=== PATIENT | male | born 1955 | race Caucasian/White ===

== ENCOUNTER → 2017-05-18 | Outpatient (CLI) | payer OTHER ==
[~2017-05-18] MED LIST: COLA100C5 PO; No medications; PERC5TAB12 PO; TYLE325T5 PO
== END ==
LOC: M SMT 11:10
PROVIDERS: ATTEND Urology
DX: Z85.46 Personal history of malignant neoplasm of prostate (principal)

== ENCOUNTER → 2017-11-14 | Outpatient (CLI) | payer OTHER ==
[2017-11-14 18:39] LABS: PROSTATIC SPECIFIC AG MONITOR < 0.01 NG/ML (< 4.0)
== END ==
LOC: M SMT 11:20
DX: C61 Malignant neoplasm of prostate (principal)
CPT/HCPCS: 84153

== ENCOUNTER → 2018-06-04 | Outpatient (CLI) | payer OTHER ==
[2018-06-04 14:15] LABS: PROSTATIC SPECIFIC AG MONITOR < 0.0 NG/ML (< 4.0)
== END ==
LOC: M SMT 09:02
DX: C61 Malignant neoplasm of prostate (principal)
CPT/HCPCS: 84153

== ENCOUNTER → 2018-11-21 | Outpatient (CLI) | payer OTHER | LOC: M SMT 08:47 | PROVIDERS: ATTEND Urology | DX: C61 Malignant neoplasm of prostate (principal) ==

== ENCOUNTER 2019-04-15 06:53 | Day surgery (SDC) | payer OTHER ==
[~2019-04-15] VITALS: Ht 170.2 cm; Wt 72.1 kg
[~2019-04-15 06:53] MED LIST changes: +ATOR1TAB19 PO; +TRAV04OPD OU
[2019-04-15] MEDS ORDERED: NS 1,000 ML IV ONE (07:00)
[2019-04-15] MEDS ORDERED: LIDOCAINE 2% INJ 100 MG/5 ML SDV (FOR ANES.) As Ordered ONE (07:06)
[2019-04-15] MEDS ORDERED: PROPOFOL 200 MG/20 ML VIAL As Ordered ONE ×2 (07:06→07:56)
--- NOTE | 2019-04-15 08:15 | ROOR ---
Patient Name: Bret Liu Procedure Date: 04/15/2019 7:48 AM Date of : 1955 Age: 63 Room: [facility] Gender: Male Note Status: Finalized Procedure: Total Colonoscopy to Cecum + ileoscopy + Cold Snare Polypectomy Indications: Screening for colorectal malignant neoplasm Providers: Delmar Huynh MD Referring MD: ARMANDO MANDEL JR, MD Requesting Provider: Medicines: Monitored Anesthesia Care Complications: No immediate complications. Procedure: Pre-Anesthesia Assessment: - The heart rate, respiratory rate, oxygen saturations, blood pressure, adequacy of pulmonary ventilation, and response to care were monitored throughout the procedure. The Colonoscope was introduced through the anus and advanced to the cecum, identified by appendiceal orifice and ileocecal valve. The colonoscopy was performed without difficulty. The patient tolerated the procedure well. The quality of the bowel preparation was excellent. Findings: The perianal and digital rectal examinations were normal. Non-bleeding internal hemorrhoids were found during retroflexion. The hemorrhoids were small and Grade I (internal hemorrhoids that do not prolapse). Multiple small and large-mouthed diverticula were found in the recto-sigmoid colon, sigmoid colon and descending colon. Two sessile polyps were found at 25 cm proximal to the anus. The polyps were small in size. These polyps were removed with a cold snare. Resection and retrieval were complete. A small polyp was found at 60 cm proximal to the anus. The polyp was sessile. The polyp was removed with a cold snare. Resection and retrieval were complete. The exam was otherwise without abnormality on direct and retroflexion views. The terminal ileum appeared normal. Impression: - Non-bleeding internal hemorrhoids. - Diverticulosis in the recto-sigmoid colon, in the sigmoid colon and in the descending colon. - Two small polyps at 25 cm proximal to the anus, removed with a cold snare. Resected and retrieved. - One small polyp at 60 cm proximal to the anus, removed with a cold snare. Resected and retrieved. - The examination was otherwise normal on direct and retroflexion views. - The examined portion of the ileum was normal. - The exam was otherwise normal to the cecum. Recommendation: - Patient has a contact number available for emergencies. The signs and symptoms of potential delayed complications were discussed with the patient. Return to normal activities tomorrow. Written discharge instructions were provided to the patient. - High fiber diet. - Discharge patient to home. - Continue present medications. - Await pathology results. - Repeat colonoscopy in 5 years for surveillance. - Return to referring physician. - Telephone GI clinic for pathology results in 1 week. - The findings and recommendations were discussed with the patient's family. Delmar Huynh MD Delmar Huynh MD 04/15/2019 8:14:41 AM Electronically signed by Delmar Huynh MD Number of Addenda: 0 Note Initiated On: 04/15/2019 7:48 AM Estimated Blood Loss: Estimated blood loss: none.
[2019-04-15 08:30] VITALS: BP 170/103
== END 2019-04-15 08:37 | disposition home or self-care (01) ==
LOC: M OPP 06:53
PROVIDERS: ATTEND Internal Medicine Gastroenterology
DX: Z12.11 Encounter for screening for malignant neoplasm of colon (principal); K64.0 First degree hemorrhoids; K63.5 Polyp of colon; K57.30 Diverticulosis of large intestine without perforation or abscess without bleeding; Z79.899 Other long term (current) drug therapy; Z87.891 Personal history of nicotine dependence

== ENCOUNTER → 2019-05-15 | Outpatient (CLI) | payer OTHER | LOC: M SMT 13:37 | PROVIDERS: ATTEND Nurse Practitioner Family | DX: C61 Malignant neoplasm of prostate (principal) ==

== ENCOUNTER → 2020-09-04 | Outpatient (CLI) | payer MEDICARE, OTHER ==
--- NOTE | 2020-09-04 18:16 | REP ---
INDICATION: PAIN IN UNSPECIFIED JOINT COMPARISON: None. TECHNIQUE: Internal rotation, external rotation, and Y view right and left shoulder. FINDINGS: Right shoulder demonstrates old healed clavicle fracture. Generalized age-related changes at the acromioclavicular and glenohumeral joints are appreciated without overt arthritic findings. No periarticular calcifications or loose bodies. The subacromial space is normal. No acute fracture or dislocation. Left shoulder demonstrates generalized age-related changes without overt arthritic findings. The subacromial space is normal. No periarticular calcifications or loose bodies identified. No acute fracture or dislocation. IMPRESSION: Relatively generalized age-related changes. <Electronically signed by Onel Ridley > 09/04/20 [id number]
[2020-09-04 18:26] LABS: ALT/SGPT 36 U/L (12-78); BILIRUBIN,DIRECT 0.1 MG/DL (0.0-0.2); BILIRUBIN,TOTAL 0.3 MG/DL (0.2-1.0); BLOOD UREA NITROGEN 17 MG/DL (7-18); C REACTIVE PROTEIN QUANTITATIV 0.38 MG/DL (0.00-0.30); CALCIUM LEVEL 9.3 MG/DL (8.8-10.2); CARBON DIOXIDE LEVEL 30 MEQ/L (21-32); CHLORIDE LEVEL 106 MEQ/L (98-107); CHOLESTEROL LEVEL 159 MG/DL (< 200); CPK CREATINE PHOSPHOKINASE 59 U/L (39-308); GLOMERULAR FILTRATION RATE > 60.0 (>49); GLUCOSE, FASTING 96 MG/DL (70-100); LDH LACTATE DEHYDROGENASE 161 U/L (87-241); PHOSPHORUS LEVEL 4.5 MG/DL (2.5-4.9); POTASSIUM SERUM 4.5 MEQ/L (3.5-5.1); RHEUMATOID FACTOR QUANT < 10.0 IU/ML (<15.0); SODIUM LEVEL 141 MEQ/L (136-145); TOTAL PROTEIN 6.8 GM/DL (6.4-8.2); TRIGLYCERIDES LEVEL 79 MG/DL (<150)
[2020-09-04 18:35] LABS: TOTAL 25(OH) VITAMIN D 56.5 NG/ML (30.0-100.0)
== END ==
LOC: M LAB 17:19
PROVIDERS: ATTEND Internal Medicine
DX: M25.519 Pain in unspecified shoulder (principal); Z79.899 Other long term (current) drug therapy
CPT/HCPCS: 36415; 73030; 80053; 82306; 82465; 82550; 83615; 84100; 84478; 85652; 86140; 86431; G0463

== ENCOUNTER → 2020-09-24 | Outpatient (CLI) | payer MEDICARE, OTHER | LOC: M LAB 09:20 | PROVIDERS: ATTEND Internal Medicine | DX: M35.3 Polymyalgia rheumatica (principal) ==

== ENCOUNTER → 2020-10-07 | Outpatient (CLI) | payer MEDICARE, OTHER | LOC: M LAB 08:42 | PROVIDERS: ATTEND Internal Medicine | DX: M35.3 Polymyalgia rheumatica (principal) ==

== ENCOUNTER → 2020-10-12 | Outpatient (CLI) | payer MEDICARE, OTHER ==
--- NOTE | 2020-10-12 16:43 | DEXAMM ---
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 COMPARISON: None. TECHNIQUE: Bone density was measured using dual-energy x-ray absorptiometry (DEXA). FINDINGS: AP SPINE L1-L4 BMD 0.985 g/cm2 Young Adult T-Score -1.7 Age Matched Z-Score -1.6. LT FEMUR, TOTAL BMD is 0.927 g/cm2 Young Adult T-Score -0.6 Age Matched Z-Score is -0.7. LT NECK BMD 0.944 g/cm2 Young Adult T-Score -0.7 Age Matched Z-Score 0.1. RT FEMUR, TOTAL BMD 0.947 g/cm2 Young Adult T-Score -0.5 Age Matched Z-Score 5-0.5. RT NECK BMD 0.926 g/cm2 Young Adult T-Score -0.8 Age Matched Z-Score 0.0. IMPRESSION: There is low bone density of the spine. There is normal bone density of the left hip. There is normal bone density of the right hip. FOLLOW-UP: Recommendation for the next bone density exam: 2 years. <Electronically signed by Bret Centeno > 10/12/20 [id number]
== END ==
LOC: M WHC 14:00
PROVIDERS: ATTEND Internal Medicine
DX: Z79.52 Long term (current) use of systemic steroids (principal)

== ENCOUNTER → 2020-10-21 | Outpatient (CLI) | payer MEDICARE, OTHER | LOC: M LAB 12:40 | PROVIDERS: ATTEND Internal Medicine | DX: M35.3 Polymyalgia rheumatica (principal) ==

== ENCOUNTER → 2020-11-09 | Outpatient (CLI) | payer MEDICARE, OTHER | LOC: M LAB 11:14 | PROVIDERS: ATTEND Internal Medicine | DX: M35.3 Polymyalgia rheumatica (principal) ==

== ENCOUNTER → 2020-11-19 | Outpatient (CLI) | payer MEDICARE, OTHER | LOC: M LAB 07:49 | PROVIDERS: ATTEND Internal Medicine | DX: M35.3 Polymyalgia rheumatica (principal) ==

== ENCOUNTER → 2020-12-03 | Outpatient (CLI) | payer MEDICARE, OTHER | LOC: M LAB 12:41 | PROVIDERS: ATTEND Internal Medicine | DX: M35.3 Polymyalgia rheumatica (principal) ==

== ENCOUNTER → 2020-12-24 | Outpatient (CLI) | payer MEDICARE, OTHER | LOC: M LAB 10:43 | PROVIDERS: ATTEND Internal Medicine | DX: M35.3 Polymyalgia rheumatica (principal) ==

== ENCOUNTER → 2021-01-14 | Outpatient (CLI) | payer MEDICARE, OTHER | LOC: M LAB 09:18 | PROVIDERS: ATTEND Internal Medicine | DX: M35.3 Polymyalgia rheumatica (principal) ==

== ENCOUNTER → 2021-01-28 | Outpatient (CLI) | payer MEDICARE, OTHER | LOC: M LAB 09:09 | PROVIDERS: ATTEND Internal Medicine | DX: M35.3 Polymyalgia rheumatica (principal) ==

== ENCOUNTER → 2021-02-11 | Outpatient (CLI) | payer MEDICARE, OTHER | LOC: M LAB 08:18 | PROVIDERS: ATTEND Internal Medicine | DX: M35.3 Polymyalgia rheumatica (principal) ==

== ENCOUNTER → 2021-02-25 | Outpatient (CLI) | payer MEDICARE, OTHER | LOC: M LAB 08:21 | PROVIDERS: ATTEND Internal Medicine | DX: M35.3 Polymyalgia rheumatica (principal) ==

== ENCOUNTER → 2021-03-02 | Outpatient (CLI) | payer MEDICARE, OTHER ==
--- NOTE | 2021-03-02 15:49 | REP ---
INDICATION: NEOPLASM OF UNCERTAIN BEHAVIOR OF LEFT BREAST. COMPARISON: No comparison breast imaging. TECHNIQUE: A skin marker is affixed to the skin at the site of the palpable lump in the left breast. Craniocaudal and mediolateral oblique views were obtained. A left breast mediolateral view was obtained. Routine views of the right breast were obtained. 3D tomography was utilized. Targeted left breast sonography was performed. FINDINGS: Breast tissue is predominantly fat. There are normal appearing lymph nodes in each axilla. At the site of the skin marker, there is an oval-shaped 4.8 cm encapsulated fatty lesion consistent with benign lipoma. This corresponds to the site of the palpable lump. No soft tissue component is seen. No spiculation or microcalcification is observed. No worrisome skin changes seen. Sonographic findings: Targeted left breast sonography is performed the 12 o'clock position at the site of the palpable lump. A homogeneous isoechoic subcutaneous mass lesion is observed measuring 5.5 x 1.9 x 4.5 cm consistent with the lipoma seen on mammography. IMPRESSION: BIRADS/ACR category 2 benign breast imaging. Benign lipoma noted at the site of the palpable lump in the left breast. . This mammogram was interpreted with the aid of an FDA-approved computer-aided detection system. The patient states he had a clinical breast exam in over a year ago. The patient letter being requested is M2 male letter. RECOMMENDATION: Clinical follow-up is advised. <Electronically signed by Al De Souza > 03/02/21 [id number]
== END ==
LOC: M WHC 13:39
PROVIDERS: ATTEND Internal Medicine
DX: D48.62 Neoplasm of uncertain behavior of left breast (principal)
CPT/HCPCS: 76642; 77066; G0279

== ENCOUNTER → 2021-03-25 | Outpatient (CLI) | payer MEDICARE, OTHER | LOC: M LAB 11:29 | PROVIDERS: ATTEND Internal Medicine | DX: M35.3 Polymyalgia rheumatica (principal) ==

== ENCOUNTER → 2021-04-05 | Outpatient (CLI) | payer MEDICARE, OTHER ==
--- NOTE | 2021-04-05 11:06 | REP ---
INDICATION: NICOTINE DEPEND. COMPARISON: None. TECHNIQUE: Axial noncontrast images from the thoracic inlet to the upper abdomen using low-dose lung screening technique (LDCT). As per the protocol only lung window images were sent to the read station for interpretation FINDINGS: There are 2 nodules in the right lung one borders the inferior most aspect of the anterior segment of the right upper lobe in the right middle lobe measuring 5 mm and is somewhat triangular in shape and the other is in the right upper lobe anterior segment measuring 5 mm as well. No other abnormal nodules, masses, or opacities are identified. Grossly, the imaged upper abdomen shows a low-density but solid-appearing area which may be herniating through a rent in the medial left hemidiaphragm. There is no gross evidence of mediastinal or hilar adenopathy. The imaged osseous structures are grossly intact. IMPRESSION: 1. Lung nodules as described above. According to the revised Fleischner society criteria these nodules represent category 2 lesions for which a [address] examination the chest is recommended. 2. Probable left-sided Bochdalek's hernia, however, it is poorly imaged on this low-dose screening CT examination of the lungs. Contrast-enhanced CT examination of the abdomen is recommended for further evaluation. <Electronically signed by Zi Leslie > 04/05/21 [id number]
== END ==
LOC: M RAD 10:17
PROVIDERS: ATTEND Internal Medicine
DX: F17.210 Nicotine dependence, cigarettes, uncomplicated (principal)

== ENCOUNTER → 2021-04-29 | Outpatient (CLI) | payer MEDICARE, OTHER | LOC: M LAB 09:21 | PROVIDERS: ATTEND Internal Medicine | DX: M35.3 Polymyalgia rheumatica (principal) ==

== ENCOUNTER → 2021-05-10 | Outpatient (CLI) | payer MEDICARE, OTHER ==
[~2021-05-10] MED LIST changes: +GASTROGRAFIN SOLUTION 30ML (Q9963) ONE; +ISOVUE-370 76% 100ML VIAL ONE
--- NOTE | 2021-05-10 15:49 | REP ---
INDICATION: LT SIDED HERNIA SEEN ON CTLD SCAN. COMPARISON: None TECHNIQUE: Standard helical technique after the intravenous administration of 100 cc Isovue 370. Oral bowel preparatory contrast was administered prior to the exam. FINDINGS: The lung bases are unchanged from the prior low-dose screening CT examination of the lungs obtained 04/05/2021. Note is made of a small fat containing left-sided Bochdalek's hernia. The gallbladder, spleen, pancreas, adrenal glands, and kidneys are within normal limits. In the posterior segment of the right lobe of the liver there is a 1.6 cm sized area of enhancement seen only on the arterial phase imaging. In the anterior segment the right lobe of the liver there is an area of peripheral nodular type enhancement which measures 1.6 cm but this is barely perceptible on 2 minute delay imaging. The liver is otherwise unremarkable. The abdominal aorta and para-aortic regions are within normal limits. The bowel loops and the mesenteries are within normal limits. There is no mass or adenopathy. There is no free fluid or free air. The osseous structures are within normal limits for the patient's age. There are spinal degenerative changes. IMPRESSION: 1. Two enhancing liver lesions as described above. These are not typical M angiomas but likely represent small vascular anomalies. Consider pre and post gadolinium enhanced hepatic MRI for complete evaluation. 2. Small likely incidental adipose only left-sided Bochdalek's hernia. 3. Other findings as described above. <Electronically signed by Zi Leslie > 05/10/21 [id number]
== END ==
LOC: M PLAIMG 14:04
PROVIDERS: ATTEND Internal Medicine
DX: K76.89 Other specified diseases of liver (principal); Q79.0 Congenital diaphragmatic hernia
CPT/HCPCS: 74160; Q9963; Q9967

== ENCOUNTER → 2021-06-01 | Outpatient (CLI) | payer MEDICARE, OTHER ==
[~2021-06-01] MED LIST changes: -GASTROGRAFIN SOLUTION 30ML (Q9963) ONE; -ISOVUE-370 76% 100ML VIAL ONE
== END ==
LOC: M LAB 08:42
PROVIDERS: ATTEND Urology
DX: C61 Malignant neoplasm of prostate (principal)
CPT/HCPCS: 36415; 84153; G0463

== ENCOUNTER → 2021-06-03 | Outpatient (CLI) | payer MEDICARE, OTHER | LOC: M LAB 10:52 | PROVIDERS: ATTEND Internal Medicine | DX: M35.3 Polymyalgia rheumatica (principal) ==

== ENCOUNTER → 2021-07-01 | Outpatient (CLI) | payer MEDICARE, OTHER | LOC: M LAB 08:42 | PROVIDERS: ATTEND Internal Medicine | DX: M35.3 Polymyalgia rheumatica (principal) ==

== ENCOUNTER → 2021-09-02 | Outpatient (CLI) | payer MEDICARE, OTHER | LOC: M LAB 10:40 | PROVIDERS: ATTEND Internal Medicine | DX: M53.3 Sacrococcygeal disorders, not elsewhere classified (principal) ==

== ENCOUNTER → 2021-09-13 | Outpatient (REF) | payer MEDICARE, OTHER ==
[2021-09-13 17:10] LABS: C REACTIVE PROTEIN QUANTITATIV < 0.30 MG/DL (0.00-0.30)
[2021-09-13 17:22] LABS: TOTAL 25(OH) VITAMIN D 77.7 NG/ML (30.0-100.0)
== END ==
LOC: M SFHCRHEU 12:32
PROVIDERS: ATTEND Internal Medicine
DX: M35.3 Polymyalgia rheumatica (principal); M85.80 Other specified disorders of bone density and structure, unspecified site

== ENCOUNTER → 2022-06-07 | Outpatient (CLI) | payer MEDICARE, OTHER | LOC: M WUC 08:58 | PROVIDERS: ATTEND Urology | DX: C61 Malignant neoplasm of prostate (principal) ==

== ENCOUNTER → 2022-12-07 | Outpatient (CLI) | payer MEDICARE, OTHER | LOC: M WUC 10:48 | PROVIDERS: ATTEND Urology | DX: C61 Malignant neoplasm of prostate (principal) ==

== ENCOUNTER → 2023-02-23 | Outpatient (CLI) | payer MEDICARE, OTHER | LOC: M RAD 09:40 | PROVIDERS: ATTEND Internal Medicine | DX: Z87.891 Personal history of nicotine dependence (principal) ==

== ENCOUNTER → 2023-05-22 | Outpatient (CLI) | payer MEDICARE, OTHER | LOC: M PLALAB 08:49 | PROVIDERS: ATTEND Urology | DX: C61 Malignant neoplasm of prostate (principal) ==

== ENCOUNTER → 2023-08-31 | Outpatient (CLI) | payer MEDICARE, OTHER | LOC: M SOG 07:54 | PROVIDERS: ATTEND Physician Assistant | DX: M25.542 Pain in joints of left hand (principal) ==

== ENCOUNTER → 2023-10-02 | Outpatient (CLI) | payer MEDICARE, OTHER | LOC: M RAD 12:12 | PROVIDERS: ATTEND Internal Medicine | DX: I89.0 Lymphedema, not elsewhere classified (principal) ==

== ENCOUNTER 2024-03-20 10:14 | Day surgery (SDC) | payer MEDICARE, OTHER ==
[~2024-03-20] VITALS: Ht 170.2 cm; Wt 71.2 kg
[~2024-03-20 10:14] MED LIST changes: +ZOLP5TAB PO
[2024-03-20] MEDS: NS 1,000 ML IV ONE (10:50)
[2024-03-20 11:50] VITALS: TEMP 97.2
[2024-03-20 12:06] VITALS: BP 146/89; O2SAT 95
[2024-03-20] MEDS ORDERED: propofoL 200 MG/20 ML VIAL As Ordered ONE (12:09)
== END 2024-03-20 12:20 | disposition home or self-care (01) ==
LOC: M OPP 10:14
PROVIDERS: ATTEND Internal Medicine Gastroenterology
DX: Z12.11 Encounter for screening for malignant neoplasm of colon (principal); Z86.010 Personal history of colon polyps; K64.0 First degree hemorrhoids; K57.30 Diverticulosis of large intestine without perforation or abscess without bleeding; Z87.891 Personal history of nicotine dependence; Z79.02 Long term (current) use of antithrombotics/antiplatelets

== ENCOUNTER → 2024-05-23 | Outpatient (CLI) | payer MEDICARE, OTHER | LOC: M RAD 08:20 | PROVIDERS: ATTEND Internal Medicine | DX: Z87.891 Personal history of nicotine dependence (principal) ==

== ENCOUNTER 2024-06-14 12:09 | Emergency (ER) | payer MEDICARE, OTHER ==
[~2024-06-14] VITALS: Ht 167.6 cm; Wt 78.0 kg
[~2024-06-14 12:09] MED LIST changes: -BLOO-175 XX; -PRED10TA2 PO
[2024-06-14] MEDS: ASPIRIN 81MG CHEW TABLET PO ONE (12:52)
[2024-06-14 13:07] LABS: BASO # 0.1 10^3/uL (0.0-0.2); BASO % 1.1 % (0.0-1.0); EOS # 0.3 10^3/uL (0.0-0.5); EOS % 3.7 % (0.0-3.0); HEMATOCRIT 45.8 % (42.0-52.0); HEMOGLOBIN 15.6 g/dl (13.5-17.5); LYMPH % 23.4 % (24.0-44.0); MEAN CORPUSCULAR HEMOGLOBIN 31.1 pg (27.0-33.0); MEAN CORPUSCULAR HGB CONC 34.1 g/dl (32.0-36.5); MEAN CORPUSCULAR VOLUME 91.4 fl (80.0-96.0); MONO # 0.7 10^3/uL (0.0-0.8); MONO % 8.1 % (2.0-8.0); NEUTROPHILS # 5.4 10^3/uL (1.5-8.5); NEUTROPHILS % 63.6 % (36.0-66.0); PLATELET COUNT, AUTOMATED 304 10^3/uL (150-450); RED BLOOD COUNT 5.01 10^6/uL (4.30-6.10); WHITE BLOOD COUNT 8.4 10^3/uL (4.0-10.0)
[2024-06-14 14:35] LABS: CK-MB VALUE MASS 2.2 NG/ML (<3.6)
[2024-06-14 14:38] LABS: THYROXINE (T4) 7.8 UG/DL (4.5-10.9)
[2024-06-14 14:39] LABS: THYROID STIMULATING HORMONE 1.438 uIU/ML (0.55-4.78)
[2024-06-14 14:46] LABS: ALBUMIN 3.5 G/DL (3.2-5.2); ALKALINE PHOSPHATASE 73 U/L (40-129); ALT/SGPT 22 U/L (7.0-40); AST/SGOT 13 U/L (<34); BILIRUBIN,DIRECT 0.1 MG/DL (<0.4); BILIRUBIN,TOTAL 0.6 MG/DL (0.3-1.2); BLOOD UREA NITROGEN 14 MG/DL (9-23); CALCIUM LEVEL 9.5 MG/DL (8.3-10.6); CARBON DIOXIDE LEVEL 28 MMOL/L (20-31); CHLORIDE LEVEL 109 MMOL/L (98-107); CPK CREATINE PHOSPHOKINASE 137 U/L (46-171); CREATININE FOR GFR 0.88 MG/DL (0.70-1.30); GLOMERULAR FILTRATION RATE > 60.0 (>49); GLUCOSE, FASTING 105 MG/DL (74-106); POTASSIUM SERUM 4.4 MMOL/L (3.5-5.1); SODIUM LEVEL 142 MMOL/L (136-145); TOTAL PROTEIN 6.1 G/DL (5.7-8.2)
[2024-06-14] MEDS ORDERED: ISOVUE-370 76% 100ML VIAL As Ordered ONE (15:11)
[2024-06-14 15:40] LABS: CK-MB VALUE MASS 2.2 NG/ML (<3.6)
[2024-06-14 15:41] LABS: MB/CK RELATIVE INDEX 1.62 (< OR =4)
[2024-06-14 16:09] VITALS: BP 164/88
[2024-06-14] MEDS: methylPREDNISolone 125MG 2ML VIAL IV ONE (16:13)
[2024-06-14] MEDS ORDERED: PRED10TA2 PO (16:18)
[2024-06-14] MEDS ORDERED: BLOO-175 XX (16:18)
[2024-06-14 16:21] VITALS: O2SAT 97
[2024-06-14 16:24] VITALS: TEMP 98.2
== END 2024-06-14 16:31 | disposition home or self-care (01) ==
LOC: M ED 12:09
DX: J20.9 Acute bronchitis, unspecified (principal); E78.5 Hyperlipidemia, unspecified; Z85.46 Personal history of malignant neoplasm of prostate; Z87.891 Personal history of nicotine dependence; F10.10 Alcohol abuse, uncomplicated; Z79.52 Long term (current) use of systemic steroids; Z79.899 Other long term (current) drug therapy
CPT/HCPCS: 71045; 71275; 80048; 80076; 82550; 82553; 83880; 84436; 84443; 84484; 85025; 87486; 87581; 87633; 87798; 93005; 93041; 94760; 96374; 99285; J2919; Q9967

== ENCOUNTER → 2024-06-14 | Outpatient (REF) | payer MEDICARE, OTHER ==
[~2024-06-14] MED LIST changes: +BLOO-175 XX; +PRED10TA2 PO
== END ==
LOC: M SMT 09:05
PROVIDERS: ATTEND Urology
DX: C61 Malignant neoplasm of prostate (principal)

== ENCOUNTER → 2025-03-31 | Outpatient (CLI) | payer MEDICARE, OTHER ==
[~2025-03-31] MED LIST changes: +BLOO-327 XX; +PRED10TA2 PO; -ZOLP5TAB PO; +ZOLP5TAB9 PO
== END ==
LOC: M PLAIMG 12:52
PROVIDERS: ATTEND Internal Medicine
DX: R91.1 Solitary pulmonary nodule (principal)

== ENCOUNTER → 2025-05-27 | Outpatient (CLI) | payer MEDICARE, OTHER | LOC: M WUC 08:35 | DX: M25.531 Pain in right wrist (principal) ==

== ENCOUNTER → 2025-06-09 | Outpatient (CLI) | payer MEDICARE, OTHER | LOC: M PLALAB 11:18 | PROVIDERS: ATTEND Urology | DX: C61 Malignant neoplasm of prostate (principal) ==